=== PATIENT | female | born 1990 | race Caucasian/White ===

== ENCOUNTER 2024-12-12 22:22 | Emergency (ER) | payer MEDICAID ==
[~2024-12-12] VITALS: Ht 165.1 cm; Wt 59.0 kg
[2024-12-12 22:35] VITALS: TEMP 98.2
[2024-12-12] MEDS ORDERED: ONDANSETRON HCL/PF 4 MG/2 ML VIAL ONE (22:45)
[2024-12-12] MEDS ORDERED: MORPHINE SULFATE INJ 4 MG/ML DISP.SYRIN ONE (22:45)
[2024-12-12] MEDS: IV NS 0.9% 1,000 ML BAG IV ONE (23:05)
[2024-12-12] MEDS: MORPHINE SULFATE INJ 2 MG/ML DISP.SYRIN IV ONE (23:06)
[2024-12-12] MEDS: ONDANSETRON HCL/PF 4 MG/2 ML VIAL IVP ONE (23:06)
[2024-12-12 23:07] LABS: PLATELET COUNT (AUTO) 261 K/uL (150-450); RED BLOOD CELL COUNT(AUTO) 3.71 MIL/uL (4.0-5.2); RED CELL DISTRIBUTION WIDTH 11.1 % (11.5-15.0); WHITE BLOOD COUNT (AUTO) 9.4 K/uL (4.3-11.0)
[2024-12-12 23:16] LABS: CALCIUM, SERUM 8.7 mg/dL (8.5-10.1); CREATININE 0.6 mg/dL (0.6-1.3); SODIUM SERUM 141.0 mmol/L (136-145); UREA NITROGEN, BLOOD 7.0 mg/dL (7-18)
[2024-12-12 23:21] LABS: INR 1.09 (0.91-1.10)
[2024-12-12 23:22] LABS: ASPARTATE AMINOTRANSFERASE 19.0 U/L (15-37); TOTAL PROTEIN, SERUM 6.8 g/dL (6.4-8.2)
[2024-12-13] MEDS ORDERED: ONDANSETRON HCL/PF 4 MG/2 ML VIAL ONE (00:04)
[2024-12-13] MEDS: ONDANSETRON HCL/PF 4 MG/2 ML VIAL IV ONE (00:10)
[2024-12-13] MEDS ORDERED: MAG HYDROX/AL HYDROX/SIMETH 30 ML UDC ONE (00:27)
[2024-12-13] MEDS ORDERED: LIDOCAINE VISCOUS 2% UD 15 ML UDC ONE (00:28)
[2024-12-13 00:37] LABS: APPEARANCE,URINE CLOUDY (CLEAR); BLOOD, URINE 3+ Ery/uL (NEGATIVE); LEUKOCYTE ESTERASE ,URINE NEGATIVE (NEGATIVE); NITRITE, URINE NEGATIVE (NEGATIVE); UGLUCOSE NEGATIVE (NEGATIVE)
[2024-12-13 00:38] LABS: PREGNANCY TEST URINE QUAL NEGATIVE (NEGATIVE)
[2024-12-13 00:44] LABS: ADD URINE CULTURE YES; SQUAMOUS EPITHELIAL CELL,UR Many /HPF (None Seen)
[2024-12-13] MEDS: MAG HYDROX/AL HYDROX/SIMETH 30 ML UDC PO ONE (00:45)
[2024-12-13] MEDS: LIDOCAINE VISCOUS 2% UD 15 ML UDC MM ONE (00:45)
[2024-12-13 01:00] VITALS: BP 121/74; O2SAT 98
[2024-12-13] MEDS ORDERED: DICYCLOMINE HCL INJ 20 MG/2 ML AMPUL IM ONE (01:28)
[2024-12-13] MEDS: DICYCLOMINE HCL INJ 20 MG/2 ML AMPUL IM ONE (01:38)
[2024-12-13] MEDS ORDERED: METO5TAB87 PO (18:05)
[2024-12-13] MEDS ORDERED: ONDA4TAB5 PO (18:05)
== END 2024-12-13 04:05 | disposition short-term general hospital (02) ==
LOC: ER 22:26
DX: K52.9 Noninfective gastroenteritis and colitis, unspecified (principal); R11.2 Nausea with vomiting, unspecified; Z60.2 Problems related to living alone
CPT/HCPCS: 99291; 74176; 96374; 76856; 96361; 96375; 85025; 80048; 83690; 80076; 36415; 85730; 96372; 96376; 84703; 81001; J2270; J2405 ×2; J7030; J0500

== ENCOUNTER 2024-12-13 16:38 | Emergency (ER) | payer MEDICAID ==
[~2024-12-13] VITALS: Ht 165.1 cm; Wt 59.0 kg
[2024-12-13] MEDS: MAG HYDROX/AL HYDROX/SIMETH 30 ML UDC PO ONE (17:00)
[2024-12-13] MEDS: LIDOCAINE VISCOUS 2% UD 15 ML UDC MM ONE (17:00)
[2024-12-13] MEDS: IV NS 0.9% 1,000 ML BAG IV ONE (17:10)
[2024-12-13 17:19] LABS: PLATELET COUNT (AUTO) 277 K/uL (150-450); RED BLOOD CELL COUNT(AUTO) 3.90 MIL/uL (4.0-5.2); RED CELL DISTRIBUTION WIDTH 11.1 % (11.5-15.0); WHITE BLOOD COUNT (AUTO) 8.6 K/uL (4.3-11.0)
[2024-12-13 17:36] LABS: ASPARTATE AMINOTRANSFERASE 17.0 U/L (15-37); CALCIUM, SERUM 8.8 mg/dL (8.5-10.1); CREATININE 0.5 mg/dL (0.6-1.3); SODIUM SERUM 140.0 mmol/L (136-145); TOTAL PROTEIN, SERUM 7.2 g/dL (6.4-8.2); UREA NITROGEN, BLOOD 5.0 mg/dL (7-18)
[2024-12-13 17:42] LABS: APPEARANCE,URINE CLEAR (CLEAR); BLOOD, URINE 3+ Ery/uL (NEGATIVE); LEUKOCYTE ESTERASE ,URINE NEGATIVE (NEGATIVE); NITRITE, URINE NEGATIVE (NEGATIVE); UGLUCOSE NEGATIVE (NEGATIVE)
[2024-12-13] MEDS ORDERED: ONDANSETRON HCL/PF 4 MG/2 ML VIAL ONE ×2 (17:45→20:19)
[2024-12-13] MEDS ORDERED: LIDOCAINE VISCOUS 2% UD 15 ML UDC ONE (17:45)
[2024-12-13] MEDS ORDERED: MAG HYDROX/AL HYDROX/SIMETH 30 ML UDC ONE (17:45)
[2024-12-13] MEDS ORDERED: FAMOTIDINE/PF INJ 20 MG/2 ML VIAL IV ONE (17:46)
[2024-12-13] MEDS ORDERED: ACETAMINOPHEN ES 500 MG TABLET ONE (17:46)
[2024-12-13] MEDS ORDERED: KETOROLAC TROMETHAMINE 15 MG/ML VIAL ONE (17:47)
[2024-12-13] MEDS ORDERED: MORPHINE SULFATE INJ 2 MG/ML DISP.SYRIN ONE (17:48)
[2024-12-13 17:55] LABS: ADD URINE CULTURE NO; SQUAMOUS EPITHELIAL CELL,UR 0-2 /HPF (None Seen)
[2024-12-13] MEDS: FAMOTIDINE/PF INJ 20 MG/2 ML VIAL IV ONE (17:58)
[2024-12-13] MEDS: ACETAMINOPHEN ES 500 MG TABLET PO ONE (17:58)
[2024-12-13] MEDS: ONDANSETRON HCL/PF 4 MG/2 ML VIAL IVP ONE (17:58)
[2024-12-13] MEDS: MORPHINE SULFATE INJ 2 MG/ML DISP.SYRIN IV ONE (17:59)
[2024-12-13] MEDS ORDERED: ONDA4TAB5 PO (18:05)
[2024-12-13] MEDS ORDERED: METO5TAB87 PO (18:05)
[2024-12-13 18:07] LABS: PREGNANCY TEST URINE QUAL NEGATIVE (NEGATIVE)
[2024-12-13] MEDS: KETOROLAC TROMETHAMINE 15 MG/ML VIAL IV ONE (18:27)
[2024-12-13 18:38] LABS: AMPHETAMINE, URINE NEGATIVE (NEGATIVE); BARBITURATE, URINE NEGATIVE (NEGATIVE); BENZODIAZEPINE, URINE NEGATIVE (NEGATIVE); CANNABINOID, URINE NEGATIVE (NEGATIVE); COCCAINE, URINE NEGATIVE (NEGATIVE); OPIATE, URINE NEGATIVE (NEGATIVE)
[2024-12-13] MEDS: ONDANSETRON HCL/PF - ER 4 MG/2 ML VIAL IV ONE (20:26)
[2024-12-13 21:33] VITALS: BP 133/82; TEMP 98.1; O2SAT 98
== END 2024-12-13 21:33 ==
LOC: ER 16:41
DX: R11.2 Nausea with vomiting, unspecified (principal); K52.9 Noninfective gastroenteritis and colitis, unspecified; Z60.2 Problems related to living alone; Z79.899 Other long term (current) drug therapy
CPT/HCPCS: 99285; 96374; 96361; 96375; 96376; 85025; 80048; 83690; 80076; 84703; 81001; 36415; 80320; 80307; J1308; J2405 ×3; J7030; J2270; J1885; G0480